=== PATIENT | female | born 1960 | race Two or more races ===

== ENCOUNTER 2016-11-03 20:50 | Inpatient (IN) | payer MEDICARE, MEDICAID ==
[~2016-11-03] VITALS: Ht 170.2 cm; Wt 92.1 kg
[2016-11-03 21:28] VITALS: BP 148/62
[2016-11-03 21:30] LABS: BASOPHILS % (AUTO) 1.5 % (0.0-2.0); EOSINOPHILS % (AUTO) 2.5 % (0.0-3.0); LYMPHOCYTES % (AUTO) 26.9 % (20.0-45.0); MEAN CORPUSCULAR HEMOGLOBIN 27.3 PG (27.0-31.0); MEAN CORPUSCULAR HGB CONC 31.8 G/DL (32.0-36.0); MEAN CORPUSCULAR VOLUME 86 FL (80-99); MEAN PLATELET VOLUME 8.5 FL (6.5-10.1); MONOCYTES % (AUTO) 4.8 % (1.0-10.0); NEUTROPHILS % (AUTO) 64.4 % (45.0-75.0); PLATELET COUNT 294 K/UL (150-450); RED BLOOD COUNT 5.06 M/UL (4.20-5.40); RED CELL DISTRIBUTION WIDTH 13.2 % (11.6-14.8)
[2016-11-03 21:49] LABS: TROPONIN I < 0.30 ng/mL (<=0.30)
[2016-11-03 21:53] LABS: CALCIUM 9.6 mg/dL (8.6-10.2); CREATININE 1.6 mg/dL (0.5-0.9); GLOMERULAR FILTRATION RATE 33.6 mL/min (>60); POTASSIUM 3.3 mEQ/L (3.4-4.9); TOTAL PROTEIN 7.6 g/dL (6.6-8.7)
[2016-11-03 22:03] LABS: CKMB 3.3 ng/mL (< 3.8)
--- NOTE | 2016-11-03 22:21 | Emergency Room Report ---
History of Present Illness General Chief Complaint: Chest Pain Source: Patient Present Illness HPI This patient states that she has had chest pain today primarily with walking and exertion. She denies shortness of breath. She denies nausea or vomiting. She denies cough or congestion. She denies fever or chills. She denies abdominal pain. She has no other complaints. Allergies: Coded Allergies: No Known Allergies (Unverified , 11/03/16) Patient History Past Medical History: see triage record, HTN, CVA/TIA Social History: Denies: alcohol use, drug use, smoking Reviewed Nursing Documentation: PMH: Agreed, PSxH: Agreed Nursing Documentation-PMH Past Medical History: No History, Except For Hx Hypertension: Yes Hx Neurological Problems: Yes - Lt weakness Hx Cerebrovascular Accident: Yes - 6 times Review of Systems All Other Systems: negative except mentioned in HPI Physical Exam Vital Signs Date Time Temp Pulse Resp B/P Pulse Ox O2 Delivery O2 Flow Rate FiO2 11/03/16 20:46 110 20 198/99 97 Room Air 11/03/16 21:28 98.0 Sp02 EP Interpretation: reviewed, normal General Appearance: no apparent distress, alert, GCS 15, non-toxic Head: normocephalic, atraumatic Eyes: bilateral eye PERRL, bilateral eye normal inspection ENT: hearing grossly normal, normal pharynx, no angioedema, normal voice Neck: full range of motion, supple/symm/no masses Respiratory: chest non-tender, lungs clear, normal breath sounds, speaking full sentences Cardiovascular #1: regular rate, rhythm, no edema Gastrointestinal: normal bowel sounds, non tender, soft, non-distended, no guarding, no rebound Rectal: deferred Musculoskeletal: back normal, gait/station normal, normal range of motion, non- tender Neurologic: alert, oriented x3, responsive, motor strength/tone normal, sensory intact, speech normal Psychiatric: judgement/insight normal, memory normal, mood/affect normal, no suicidal/homicidal ideation Skin: normal color, no rash, warm/dry, well hydrated Medical Decision Making Diagnostic Impression: Primary Impression: Chest pain ER Course This patient presents with chest pain. It is somewhat exertional. It has been going on all day today and she does have a negative troponin currently. However , this patient has a history of CVA and hypertension, so, she is high risk for acute coronary syndrome. Given how high risk this patient is, I will admit this patient for further cardiac evaluation to rule out unstable angina/acute coronary syndrome. Labs Test 11/03/16 21:02 White Blood Count 11.0 K/UL (4.8-10.8) Red Blood Count 5.06 M/UL (4.20-5.40) Hemoglobin 13.8 G/DL (12.0-16.0) Hematocrit 43.4 % (37.0-47.0) Mean Corpuscular Volume 86 FL (80-99) Mean Corpuscular Hemoglobin 27.3 PG (27.0-31.0) Mean Corpuscular Hemoglobin Concent 31.8 G/DL (32.0-36.0) Red Cell Distribution Width 13.2 % (11.6-14.8) Platelet Count 294 K/UL (150-450) Mean Platelet Volume 8.5 FL (6.5-10.1) Neutrophils (%) (Auto) 64.4 % (45.0-75.0) Lymphocytes (%) (Auto) 26.9 % (20.0-45.0) Monocytes (%) (Auto) 4.8 % (1.0-10.0) Eosinophils (%) (Auto) 2.5 % (0.0-3.0) Basophils (%) (Auto) 1.5 % (0.0-2.0) Sodium Level 141 mEQ/L (135-145) Potassium Level 3.3 mEQ/L (3.4-4.9) Chloride Level 99 mEQ/L (98-107) Carbon Dioxide Level 28 mEQ/L (20-30) Anion Gap 14 (5-15) Blood Urea Nitrogen 20 mg/dL (7-23) Creatinine 1.6 mg/dL (0.5-0.9) Estimat Glomerular Filtration Rate 33.6 mL/min (>60) Glucose Level 276 mg/dL (74-106) Calcium Level 9.6 mg/dL (8.6-10.2) Total Bilirubin 0.8 mg/dL (0.0-1.2) Aspartate Amino Transf (AST/SGOT) 15 U/L (5-40) Alanine Aminotransferase (ALT/SGPT) 13 U/L (3-33) Alkaline Phosphatase 93 U/L (35-104) Total Creatine Kinase 125 U/L (26-140) Creatine Kinase MB 3.3 ng/mL (< 3.8) Creatine Kinase MB Relative Index 2.6 Troponin I < 0.30 ng/mL (<=0.30) Total Protein 7.6 g/dL (6.6-8.7) Albumin 3.9 g/dL (3.5-5.2) Globulin 3.7 g/dL Albumin/Globulin Ratio 1.0 (1.0-2.7) EKG Diagnostic Results Rate: normal Rhythm: NSR ST Segments: other Other Impression NSST CHANGES LATERAL LEADS. Rhythm Strip Diag. Results EP Interpretation: yes Rate: 80'S Rhythm: NSR, no PVC's, no ectopy Chest X-Ray Diagnostic Results EP Interpretation: Yes Findings: no consolidation, no effusion, no pneumothorax, no acute cardiopulmonary disease Number of Views: 1 Last Vital Signs Date Time Temp Pulse Resp B/P Pulse Ox O2 Delivery O2 Flow Rate FiO2 11/03/16 21:31 68 19 Room Air 11/03/16 21:28 98.0 148/62 97 Disposition: ADMITTED INPATIENT Condition: Serious Referrals: NON PHYSICIAN (PCP) ALIE SNOW D.O. Nov 03, 2016 22:21
[2016-11-03] MEDS ORDERED: NORVASC10 MG ORAL (23:17)
[2016-11-03] MEDS ORDERED: ASPIRIN300 MG RECTAL (23:17)
[2016-11-03] MEDS ORDERED: PLAVIX75 MG ORAL (23:17)
[2016-11-03] MEDS ORDERED: LISINOPRIL5 MG ORAL (23:17)
[2016-11-03] MEDS ORDERED: TRAMADOL HCL100 M2 ORAL (23:35)
[2016-11-03] MEDS ORDERED: VITAMIN D250000 UNI1 ORAL (23:35)
[2016-11-03] MEDS ORDERED: PAROXETINE CR12.5 MG PO (23:35)
[2016-11-03] MEDS ORDERED: LASIX40 MG ORAL (23:35)
[2016-11-03] MEDS ORDERED: JANUVIA25 MG ORAL (23:35)
[2016-11-03 23:40] VITALS: BP 156/103
[2016-11-04] VITALS (7 sets, daily range): BP systolic 145–189; BP diastolic 74–99
[2016-11-04] MEDS ORDERED: Nitroglycerin Subl 0.4mg tab (Bottle Of 25) SL PRN (02:00)
[2016-11-04] MEDS ORDERED: traMADol 50mg tab ORAL PRN (02:45)
[2016-11-04] MEDS ORDERED: Norco 5mg/325mg tab ORAL PRN (02:45)
[2016-11-04] MEDS ORDERED: METOPROLOL TART25 MG ORAL (02:55)
[2016-11-04] MEDS ORDERED: NORVASC10 MG ORAL (02:59)
[2016-11-04] MEDS ORDERED: TRAMADOL HCL50 MG ORAL (02:59)
[2016-11-04 05:00] LABS: EOSINOPHILS % (AUTO) 4.3 % (0.0-3.0); MEAN CORPUSCULAR HEMOGLOBIN 27.8 PG (27.0-31.0); MEAN CORPUSCULAR HGB CONC 32.6 G/DL (32.0-36.0); MEAN CORPUSCULAR VOLUME 85 FL (80-99); MEAN PLATELET VOLUME 8.3 FL (6.5-10.1); MONOCYTES % (AUTO) 6.2 % (1.0-10.0); NEUTROPHILS % (AUTO) 56.5 % (45.0-75.0); PLATELET COUNT 221 K/UL (150-450); RED BLOOD COUNT 4.21 M/UL (4.20-5.40); WHITE BLOOD COUNT 9.6 K/UL (4.8-10.8)
[2016-11-04 05:19] LABS: CALCIUM 8.8 mg/dL (8.6-10.2); CREATININE 1.4 mg/dL (0.5-0.9); GLOMERULAR FILTRATION RATE 39.2 mL/min (>60); MAGNESIUM 1.5 mg/dL (1.7-2.5); POTASSIUM 3.7 mEQ/L (3.4-4.9); TOTAL PROTEIN 6.1 g/dL (6.6-8.7)
[2016-11-04 06:05] LABS: TROPONIN I < 0.30 ng/mL (<=0.30)
[2016-11-04] MEDS: Heparin 5000 units/ml inj SUBQ SCH ×3 (06:26→21:09)
[2016-11-04] MEDS: PARoxetine 10mg tab ORAL SCH (08:39)
[2016-11-04] MEDS: Lisinopril 2.5mg tab ORAL SCH (08:40)
[2016-11-04] MEDS: NovoLOG Insulin Flexpen SUBQ SCH ×4 (09:00→21:09)
--- NOTE | 2016-11-04 10:57 | Diagnostic Imaging Report ---
Indication: Chest Pain Comparison: None A single view chest radiograph was obtained. Findings: Cardiomediastinal appearance is within normal limits for age. Pulmonary vascularity is appropriate. The diaphragmatic contour is smooth and costophrenic angles are sharp. No pleural effusions are identified. The bones are unremarkable. Impression: No acute findings
--- NOTE | 2016-11-04 12:31 | Cardiac Electrophysiology PN ---
Subjective Subjective [id number]. Chest pain and High DDimer. Bifascicular block. Inferolat ischemia. if Chest CT no PE, Do stress test on Sunday. Objective Last 24 Hour Vital Signs Date Time Temp Pulse Resp B/P Pulse Ox O2 Delivery O2 Flow Rate FiO2 11/04/16 12:00 82 11/04/16 11:23 91 145/96 11/04/16 08:40 162/92 11/04/16 08:00 97.9 69 20 162/92 94 Room Air 11/04/16 08:00 68 11/04/16 04:00 98.0 72 18 150/81 98 Room Air 11/04/16 04:00 87 11/04/16 03:28 80 150/100 11/04/16 00:00 98.6 72 18 160/90 98 Room Air 11/04/16 00:00 86 11/03/16 23:40 97.7 71 20 156/103 97 Room Air 11/03/16 23:35 98.0 78 19 145/65 100 Room Air 11/03/16 21:31 68 19 Room Air 11/03/16 21:28 98.0 71 20 148/62 97 Room Air 11/03/16 20:46 110 20 198/99 97 Room Air Intake and Output 11/03/16 11/04/16 19:00 07:00 Intake Total 360 ml Output Total 320 ml Balance 40 ml Intake Oral 60 ml Other 300 ml Output Urine Total 320 ml Laboratory Tests Test 11/03/16 21:02 11/03/16 23:12 11/04/16 03:00 White Blood Count 11.0 K/UL (4.8-10.8) H 9.6 K/UL (4.8-10.8) Red Blood Count 5.06 M/UL (4.20-5.40) 4.21 M/UL (4.20-5.40) Hemoglobin 13.8 G/DL (12.0-16.0) 11.7 G/DL (12.0-16.0) L Hematocrit 43.4 % (37.0-47.0) 35.9 % (37.0-47.0) L Mean Corpuscular Volume 86 FL (80-99) 85 FL (80-99) Mean Corpuscular Hemoglobin 27.3 PG (27.0-31.0) 27.8 PG (27.0-31.0) Mean Corpuscular Hemoglobin Concent 31.8 G/DL (32.0-36.0) L 32.6 G/DL (32.0-36.0) Red Cell Distribution Width 13.2 % (11.6-14.8) 13.0 % (11.6-14.8) Platelet Count 294 K/UL (150-450) 221 K/UL (150-450) Mean Platelet Volume 8.5 FL (6.5-10.1) 8.3 FL (6.5-10.1) Neutrophils (%) (Auto) 64.4 % (45.0-75.0) 56.5 % (45.0-75.0) Lymphocytes (%) (Auto) 26.9 % (20.0-45.0) 32.0 % (20.0-45.0) Monocytes (%) (Auto) 4.8 % (1.0-10.0) 6.2 % (1.0-10.0) Eosinophils (%) (Auto) 2.5 % (0.0-3.0) 4.3 % (0.0-3.0) H Basophils (%) (Auto) 1.5 % (0.0-2.0) 1.0 % (0.0-2.0) Sodium Level 141 mEQ/L (135-145) 142 mEQ/L (135-145) Potassium Level 3.3 mEQ/L (3.4-4.9) L 3.7 mEQ/L (3.4-4.9) Chloride Level 99 mEQ/L (98-107) 103 mEQ/L (98-107) Carbon Dioxide Level 28 mEQ/L (20-30) 25 mEQ/L (20-30) Anion Gap 14 (5-15) 14 (5-15) Blood Urea Nitrogen 20 mg/dL (7-23) 21 mg/dL (7-23) Creatinine 1.6 mg/dL (0.5-0.9) H 1.4 mg/dL (0.5-0.9) H Estimat Glomerular Filtration Rate 33.6 mL/min (>60) 39.2 mL/min (>60) Glucose Level 276 mg/dL (74-106) H 283 mg/dL (74-106) H Calcium Level 9.6 mg/dL (8.6-10.2) 8.8 mg/dL (8.6-10.2) Total Bilirubin 0.8 mg/dL (0.0-1.2) 0.5 mg/dL (0.0-1.2) Aspartate Amino Transf (AST/SGOT) 15 U/L (5-40) 14 U/L (5-40) Alanine Aminotransferase (ALT/SGPT) 13 U/L (3-33) 10 U/L (3-33) Alkaline Phosphatase 93 U/L (35-104) 83 U/L (35-104) Total Creatine Kinase 125 U/L (26-140) Creatine Kinase MB 3.3 ng/mL (< 3.8) Creatine Kinase MB Relative Index 2.6 Troponin I < 0.30 ng/mL (<=0.30) < 0.30 ng/mL (<=0.30) Total Protein 7.6 g/dL (6.6-8.7) 6.1 g/dL (6.6-8.7) L Albumin 3.9 g/dL (3.5-5.2) 3.1 g/dL (3.5-5.2) L Globulin 3.7 g/dL 3.0 g/dL Albumin/Globulin Ratio 1.0 (1.0-2.7) 1.0 (1.0-2.7) Urine Opiates Screen Negative (NEGATIVE) Urine Barbiturates Screen Negative (NEGATIVE) Phencyclidine (PCP) Screen Negative (NEGATIVE) Urine Amphetamines Screen Negative (NEGATIVE) Urine Benzodiazepines Screen Negative (NEGATIVE) Urine Cocaine Screen Negative (NEGATIVE) Urine Marijuana (THC) Screen Negative (NEGATIVE) D-Dimer 1351 ng/mL (<500) H Phosphorus Level 3.1 mg/dL (2.5-4.8) Magnesium Level 1.5 mg/dL (1.7-2.5) CHRISTIANO GILBERT Nov 04, 2016 12:31
--- NOTE | 2016-11-04 14:19 | History & Physical ---
History and Physical History & Physicial Dictated for Int Med-Dr Chiu no. [id number]. DUYEN OWUSU Nov 04, 2016 14:19
[2016-11-04] MEDS: 1/2NS w/KCl 20mEq 1000ml 1,000 ML IV SCH (15:30)
[2016-11-04] MEDS: Acetylcysteine 20% Soln 4ml ORAL SCH (16:43)
--- NOTE | 2016-11-04 21:47 | History and Physical Report ---
DATE OF ADMISSION: 11/03/2016 CHIEF COMPLAINT: The patient is a 56-year-old female, presents with chief complaint of chest pain. HISTORY OF PRESENT ILLNESS: Began one day prior to admission. The patient began to experience chest pain. Chest pain was exacerbated with walking. Chest pain was substernal. Chest pain did not radiate to the arm or to the jaw. The patient presented to [place] emergency room. The patient was admitted for chest pain to rule out acute coronary syndrome. REVIEW OF SYSTEMS: Constitutional: The patient denies weight loss or weight gain. The patient denies fevers or chills. HEENT: The patient denies ear or throat pain. Cardiovascular: The patient complains of chest pain as above. The patient denies palpitations. Chest: The patient denies wheezes or shortness of breath. Abdominal: The patient denies nausea, vomiting, diarrhea, or constipation. Genitourinary: The patient denies dysuria or increased frequency of urination. Neuromuscular: The patient has a left-sided weakness. The patient denies seizures or generalized weakness. PAST MEDICAL HISTORY: Significant for: 1. Hypertension. 2. Diabetes type 2. 3. Cerebrovascular disease, status post cerebrovascular accident x6. 4. Left hemiparesis. PAST SURGICAL HISTORY: The patient denies. CURRENT MEDICATIONS: 1. Amlodipine 10 mg one tablet p.o. daily. 2. Aspirin 325 mg one tablet p.o. daily. 3. Plavix 75 mg one tablet p.o. daily. 4. Vitamin D 50,000 units once weekly. 5. Lasix 40 mg one tablet p.o. daily. 6. Lisinopril 5 mg one tablet p.o. daily. 7. Metoprolol 25 mg one tablet p.o. twice daily. 8. Paxil 10 mg p.o. daily. 9. Januvia 25 mg one tablet p.o. daily. 10. Tramadol 50 mg one tablet p.o. q.8 hours as needed. ALLERGIES: No known drug allergies. SOCIAL HISTORY: The patient is single and is unemployed. The patient denies tobacco or alcohol use. PHYSICAL EXAMINATION: VITAL SIGNS: Temperature 98.0 degrees, respirations 18, pulse 72 to 87, and blood pressure 150/81. GENERAL: The patient is a well-developed and well-nourished obese female, in no apparent distress. HEENT: Eyes, pupils are equal and responsive to light and accommodation. Extraocular movements are intact. NECK: Supple without lymphadenopathy. CHEST: Lungs are clear to auscultation bilaterally without wheezes or rales. CARDIOVASCULAR: Regular rhythm and rate. S1 and S2 are normal without murmurs, rubs, or gallops. ABDOMEN: Soft, nontender, and nondistended. Positive bowel sounds. No evidence of hepatosplenomegaly. Currently, no rebound or guarding noted. EXTREMITIES: Negative for clubbing, cyanosis, or edema. RECTAL: Refused. GENITOURINARY: Refused. NEUROLOGIC: The patient does have 3/5 motor strength on the left when compared to the right. Deep tendon reflexes are 2+ plantar. Cranial nerves II through XII are grossly intact without focal deficits. LABORATORY STUDIES: WBC 11.3, hemoglobin 13.8, hematocrit 43.4, and platelets 294,000. Sodium 141, potassium 3.3, chloride 99, CO2 28, BUN 20, creatinine 1.6, and glucose 276. Troponin less than 0.3. D-dimer elevated at 1351. ASSESSMENT: This is a 56-year-old female with: 1. Chest pain. 2. Elevated D-dimer. 3. Diabetes type 2. 4. Hypertension. 5. Cerebrovascular disease. 6. Left hemiparesis. TREATMENT: 1. Chest pain. A Cardiology consultation has been obtained with Dr. Ranulfo Mann. The patient is scheduled for a Cardiolite stress test on 11/06/2016. 2. Elevated D-dimer is concerning in the patient with chest pain. This may be secondary to pulmonary embolism. CT angiogram of the chest is pending. According to Radiology, the CT angiogram cannot be performed at this time. A ventilation/perfusion scan has been ordered instead. 3. Diabetes type 2. The patient has been placed on NovoLog sliding scale. 4. Hypertension. Continue amlodipine as above. Continue lisinopril 5 mg one tablet p.o. daily. 5. Cerebrovascular disease, status post cerebrovascular accident. Continue Plavix as above. 6. Left hemiparesis. Corky Stewart M.D. DR: RO JOB#: [id number] CC:
--- NOTE | 2016-11-04 22:58 | Consultation ---
DATE OF CONSULTATION: 11/04/2016 CARDIOLOGY CONSULTATION CONSULTING PHYSICIAN: Ranulfo Mann M.D. REFERRING PHYSICIAN: Len Chiu M.D. REASON FOR CONSULTATION: Chest pain. HISTORY OF PRESENT ILLNESS: The patient is a very pleasant 56-year-old lady, who presents for hypertension and insulin-dependent diabetes with history of multiple CVAs in the past with left hemiparesis, who presented to the emergency room complaining of chest pain while she was walking when she is exerting. The patient did not have any shortness of breath or syncope or presyncopal symptoms. The patient did not have nausea, vomiting, or diaphoresis. The patient's blood pressure in the emergency room was 198/99 and pulse was 110. The first set of cardiac enzymes were negative. Her EKG showed right bundle-branch block and T-wave abnormalities suggestive of inferolateral ischemia. Cardiology consultation was obtained for further evaluation and management. REVIEW OF SYSTEMS: Review of system was performed and was negative other than what was mentioned in the history of present illness. PAST MEDICAL HISTORY: 1. Hypertension Hypertension. 2. Diabetes. 3. History of recurrent CVA and TIA. SOCIAL HISTORY: She lives at home. Does not smoke or drink alcohol. FAMILY HISTORY: Noncontributory. PHYSICAL EXAMINATION: VITAL SIGNS: Showed blood pressure of 145/96, pulse 91, respirations 18, and she is afebrile. HEAD AND NECK: Showed no JVD or carotid bruits. LUNGS: Clear. CARDIOVASCULAR: Shows regular S1 and S2 with no gallop or murmur. ABDOMEN: Soft and nontender. EXTREMITIES: No pitting edema. She has left hemiparesis. LABORATORY DATA: White count 9.2, hemoglobin , hematocrit 36, and platelet count of 221,000. Sodium 142, potassium 3.7, BUN 21, creatinine 1.4, and glucose of 283. Troponin is negative x2. Her urine toxicology is negative. D-dimer is 1351. ASSESSMENT AND PLAN: 1. Chest pain. A 56-year-old lady with multiple risk factors for coronary artery disease. We will completely rule out myocardial infarction protocol. The patient already was ruled out for myocardial infarction, but negative troponins. EKG, however, suspicious for inferolateral ischemia. However, in view of elevated D-dimer, I am going to schedule the patient for chest CT first to rule out the PE and if that is negative then proceed with nuclear stress test for further evaluation. At that point in time, we will get a 2D echocardiogram. It is of note that the patient's urine toxicology screen was also negative. 2. Hypertension on Norvasc 10 mg daily. Increase lisinopril to 5 mg b.i.d. 40 mg by mouth daily. 3. History of recurrent cerebrovascular accident. The patient is on Plavix, that will be continued. 4. History of insulin-dependent diabetes on insulin. Thank you very much, Dr. Chiu, for allowing me to participate in the care of this patient. Please do not hesitate to contact me if you have any questions regarding my evaluation. Ranulfo Mann M.D. DR: SALAZAR JOB#: [id number] CC:
[2016-11-05 03:53] VITALS: BP 157/89
[2016-11-05 04:34] LABS: BASOPHILS % (AUTO) 1.2 % (0.0-2.0); EOSINOPHILS % (AUTO) 5.3 % (0.0-3.0); LYMPHOCYTES % (AUTO) 29.8 % (20.0-45.0); MEAN CORPUSCULAR HEMOGLOBIN 27.5 PG (27.0-31.0); MEAN CORPUSCULAR HGB CONC 32.1 G/DL (32.0-36.0); MEAN CORPUSCULAR VOLUME 86 FL (80-99); MEAN PLATELET VOLUME 8.8 FL (6.5-10.1); MONOCYTES % (AUTO) 5.5 % (1.0-10.0); NEUTROPHILS % (AUTO) 58.2 % (45.0-75.0); PLATELET COUNT 235 K/UL (150-450); RED BLOOD COUNT 4.27 M/UL (4.20-5.40); RED CELL DISTRIBUTION WIDTH 12.7 % (11.6-14.8); WHITE BLOOD COUNT 9.7 K/UL (4.8-10.8)
[2016-11-05 05:11] LABS: TROPONIN I < 0.30 ng/mL (<=0.30)
[2016-11-05 05:26] LABS: CREATININE 1.5 mg/dL (0.5-0.9); GLOMERULAR FILTRATION RATE 36.2 mL/min (>60); POTASSIUM 3.8 mEQ/L (3.4-4.9)
[2016-11-05 05:38] LABS: CHOLESTEROL/HDL RATIO 2.3 (3.3-4.4)
[2016-11-05 05:48] LABS: THYROID STIMULATING HORMONE 0.222 uIU/mL (0.300-4.500)
[2016-11-05] MEDS: Heparin 5000 units/ml inj SUBQ SCH ×2 (06:17→14:16)
[2016-11-05] MEDS: NovoLOG Insulin Flexpen SUBQ SCH ×3 (06:18→17:31)
[2016-11-05 08:00] VITALS: BP_SYST 151; BP_SYST 159; BP_DIAS 80; BP_DIAS 94
[2016-11-05] MEDS: PARoxetine 10mg tab ORAL SCH (08:54)
[2016-11-05] MEDS: Lisinopril 2.5mg tab ORAL SCH (08:54)
[2016-11-05] MEDS: Acetylcysteine 20% Soln 4ml ORAL SCH ×2 (08:55→17:32)
[2016-11-05] MEDS: 1/2NS w/KCl 20mEq 1000ml 1,000 ML IV SCH ×2 (11:30→18:23)
[2016-11-05 12:00] VITALS: BP 155/94
--- NOTE | 2016-11-05 12:52 | Cardiac Electrophysiology PN ---
Assessment/Plan Assessment/Plan 1. Chest pain. Ruled out for myocardial infarction EKG, however, suspicious for inferolateral ischemia. However, in view of elevated D-dimer, ordered CT angio but was not done for cr 1.5. VQ Scan pending. If negative then proceed with nuclear stress test for further evaluation. 2. Hypertension on Norvasc 10 mg daily and Lasix 40 mg by mouth daily. 3. History of recurrent cerebrovascular accident. On Plavix. 4. History of insulin-dependent diabetes on insulin. 5. Mild renal failure creatinine 1.5 DW RN Subjective Subjective Alert in NAD. No Chest pain today. Bifascicular block. Chest CT was not done for mild creatinine elevation. Objective Last 24 Hour Vital Signs Date Time Temp Pulse Resp B/P Pulse Ox O2 Delivery O2 Flow Rate FiO2 11/05/16 12:18 71 11/05/16 12:00 98.4 85 20 155/94 98 Room Air 11/05/16 08:54 86 159/80 11/05/16 08:54 159/80 11/05/16 08:34 86 11/05/16 08:00 97.7 71 20 151/94 95 Room Air 11/05/16 04:00 74 11/05/16 03:53 98.1 77 18 157/89 97 Room Air 11/05/16 00:00 70 11/04/16 23:34 98.2 86 19 159/80 96 Room Air 11/04/16 20:00 79 11/04/16 19:00 97.7 80 18 158/92 98 Room Air 11/04/16 16:00 98.2 71 18 148/74 96 Room Air 11/04/16 16:00 71 11/04/16 16:00 Intake and Output 11/04/16 11/05/16 18:59 06:59 Intake Total 550 ml 1260 ml Output Total 600 ml Balance 550 ml 660 ml Intake Oral 550 ml 660 ml IV Total 600 ml Output Urine Total 600 ml # Voids 1 5 Laboratory Tests Test 11/05/16 03:40 White Blood Count 9.7 K/UL (4.8-10.8) Red Blood Count 4.27 M/UL (4.20-5.40) Hemoglobin 11.7 G/DL (12.0-16.0) L Hematocrit 36.6 % (37.0-47.0) L Mean Corpuscular Volume 86 FL (80-99) Mean Corpuscular Hemoglobin 27.5 PG (27.0-31.0) Mean Corpuscular Hemoglobin Concent 32.1 G/DL (32.0-36.0) Red Cell Distribution Width 12.7 % (11.6-14.8) Platelet Count 235 K/UL (150-450) Mean Platelet Volume 8.8 FL (6.5-10.1) Neutrophils (%) (Auto) 58.2 % (45.0-75.0) Lymphocytes (%) (Auto) 29.8 % (20.0-45.0) Monocytes (%) (Auto) 5.5 % (1.0-10.0) Eosinophils (%) (Auto) 5.3 % (0.0-3.0) H Basophils (%) (Auto) 1.2 % (0.0-2.0) Sodium Level 141 mEQ/L (135-145) Potassium Level 3.8 mEQ/L (3.4-4.9) Chloride Level 102 mEQ/L (98-107) Carbon Dioxide Level 26 mEQ/L (20-30) Anion Gap 13 (5-15) Blood Urea Nitrogen 22 mg/dL (7-23) Creatinine 1.5 mg/dL (0.5-0.9) H Estimat Glomerular Filtration Rate 36.2 mL/min (>60) Glucose Level 133 mg/dL (74-106) #H Calcium Level 9.0 mg/dL (8.6-10.2) Troponin I < 0.30 ng/mL (<=0.30) Triglycerides Level 65 mg/dL (< 150) Cholesterol Level 147 mg/dL (< 200) LDL Cholesterol 71 mg/dL (60-99) HDL Cholesterol 63 mg/dL (> 60) H Cholesterol/HDL Ratio 2.3 (3.3-4.4) L Thyroid Stimulating Hormone (TSH) 0.222 uIU/mL (0.300-4.500) Objective HEAD AND NECK: Showed no JVD or carotid bruits. LUNGS: Clear. CARDIOVASCULAR: Shows regular S1 and S2 with no gallop or murmur. ABDOMEN: Soft and nontender. EXTREMITIES: No pitting edema. She has left hemiparesis. CHRISTIANO ELENA Nov 05, 2016 12:52
--- NOTE | 2016-11-05 14:16 | Cardiology Report ---
APPROVED REPORT EXAM: Two-dimensional and M-mode echocardiogram with Doppler and color Doppler. M-Mode DIMENSIONS IVSd1.5 (0.7-1.1cm)Left Atrium (MM)3.9 (1.6-4.0cm) LVDd4.2 (3.5-5.6cm)Aortic Root3.7 (2.0-3.7cm) PWd1.5 (0.7-1.1cm)Aortic Cusp Exc.2.0 (1.5-2.0cm) LVDs2.1 (2.5-4.0cm) PWs2.5 cm Technically difficult study due to poor acoustic windows and pain. Hyperdynamic left ventricular function. Moderate concentric left ventricular hypertrophy. Heavy MAC Mild left atrial enlargment seen in 2D. All right cardiac chamber sizes are within normal limits. Focal aortic valve sclerosis with adequate cusp excursion Mildy thickened mitral valve leaflets with normal excursion. Pulmonic valve well visualized. Normal tricuspid valve structure. IVC at 1.7cm with physiologic collapse. A color flow and spectral Doppler study was performed and revealed: No aortic regurgitation. Trace mitral regurgitation. Mitral inflow velocities indicates reduced left ventricular relaxation diastolic dysfunction. Grade one. Trace tricuspid regurgitation. Tricuspid systolic velocities suggests peak right ventricular systolic pressure of 7 mmHg. No pulmonic regurgitation present.
[2016-11-05 16:00] VITALS: BP 156/86
--- NOTE | 2016-11-05 17:46 | Internal Med Progress Note ---
Subjective Date of Service: Nov 05, 2016 Physician Name Corky Owusu Attending Physician Len Chiu MD Current Medications Medications (Trade) Dose Ordered Sig/Pranav Route PRN Reason Start Time Stop Time Status Last Admin Dose Admin Acetaminophen (Tylenol) 650 mg Q6H PRN ORAL Mild Pain (Pain Scale 1-3) 11/04/16 02:00 12/04/16 01:59 Acetaminophen/ Hydrocodone Bitart ([place] 5/325) 1 tab Q6H PRN ORAL For Pain 11/04/16 02:45 11/11/16 02:44 Acetylcysteine 600 mg 600 mg TWICE A DAY ORAL 11/04/16 18:00 12/04/16 17:59 11/05/16 17:32 Amlodipine Besylate (Norvasc) 10 mg DAILY ORAL 11/04/16 11:00 12/04/16 10:59 11/05/16 08:54 Clopidogrel Bisulfate (Plavix) 75 mg DAILY ORAL 11/04/16 09:00 12/04/16 08:59 11/05/16 08:54 Dextrose (Dextrose 50%) STAT PRN IV Hypoglycemia 11/04/16 02:00 12/04/16 01:59 Furosemide (Lasix) 40 mg DAILY IV 11/04/16 09:00 12/04/16 08:59 11/05/16 08:55 Heparin Sodium (Porcine) (Heparin 5000 units/ml) 5,000 units EVERY 8 HOURS SUBQ 11/04/16 06:00 12/04/16 05:59 11/05/16 14:16 Insulin Aspart (NovoLOG) BEFORE MEALS AND HS SUBQ 11/04/16 06:30 12/04/16 06:29 11/05/16 17:31 Nitroglycerin (Ntg) 0.4 mg Q5M PRN SL Prn Chest Pain 11/04/16 02:00 12/04/16 01:59 Pantoprazole (Protonix) 40 mg DAILY ORAL 11/04/16 09:00 12/04/16 08:59 11/05/16 08:54 Paroxetine HCl (Paxil) 10 mg DAILY ORAL 11/04/16 09:00 12/04/16 08:59 11/05/16 08:54 Sodium (0.45%NS w/KCl 20mEq 1000ml) 1,000 ml @ 50 mls/hr Q20H IV 11/04/16 15:30 12/04/16 15:29 11/04/16 15:30 Tramadol HCl (Ultram) 50 mg Q8H PRN ORAL For Pain 11/04/16 02:45 11/11/16 02:44 11/04/16 21:19 Allergies: Coded Allergies: No Known Allergies (Unverified , 11/03/16) ROS Limited/Unobtainable: No Constitutional: Reports: no symptoms HEENT: Reports: no symptoms Cardiovascular: Reports: chest pain Respiratory: Reports: no symptoms Gastrointestinal/Abdominal: Reports: no symptoms Genitourinary: Reports: no symptoms Neurologic/Psychiatric: Reports: no symptoms Subjective 56 YO F admitted with chest pain; now elevated d-dimer. Cover for Int Med-Dr Chiu. Await CT angio chest. Objective Last Vital Signs Date Time Temp Pulse Resp B/P Pulse Ox O2 Delivery O2 Flow Rate FiO2 11/05/16 16:00 97.9 81 14 156/86 97 Room Air General Appearance: WD/WN, no apparent distress, alert EENT: PERRL/EOMI, normal ENT inspection Neck: non-tender, normal alignment, supple, normal inspection Cardiovascular: normal peripheral pulses, normal rate, regular rhythm, no gallop/murmur, no JVD Respiratory/Chest: chest wall non-tender, lungs clear, normal breath sounds, no respiratory distress, no accessory muscle use Abdomen: normal bowel sounds, non tender, soft, no organomegaly, no mass Extremities: normal range of motion Neurologic: verification engineer II-XII grossly normal, no motor/sensory deficits Skin: normal pigmentation, warm/dry Laboratory Tests Test 11/05/16 03:40 White Blood Count 9.7 K/UL (4.8-10.8) Red Blood Count 4.27 M/UL (4.20-5.40) Hemoglobin 11.7 G/DL (12.0-16.0) L Hematocrit 36.6 % (37.0-47.0) L Mean Corpuscular Volume 86 FL (80-99) Mean Corpuscular Hemoglobin 27.5 PG (27.0-31.0) Mean Corpuscular Hemoglobin Concent 32.1 G/DL (32.0-36.0) Red Cell Distribution Width 12.7 % (11.6-14.8) Platelet Count 235 K/UL (150-450) Mean Platelet Volume 8.8 FL (6.5-10.1) Neutrophils (%) (Auto) 58.2 % (45.0-75.0) Lymphocytes (%) (Auto) 29.8 % (20.0-45.0) Monocytes (%) (Auto) 5.5 % (1.0-10.0) Eosinophils (%) (Auto) 5.3 % (0.0-3.0) H Basophils (%) (Auto) 1.2 % (0.0-2.0) Sodium Level 141 mEQ/L (135-145) Potassium Level 3.8 mEQ/L (3.4-4.9) Chloride Level 102 mEQ/L (98-107) Carbon Dioxide Level 26 mEQ/L (20-30) Anion Gap 13 (5-15) Blood Urea Nitrogen 22 mg/dL (7-23) Creatinine 1.5 mg/dL (0.5-0.9) H Estimat Glomerular Filtration Rate 36.2 mL/min (>60) Glucose Level 133 mg/dL (74-106) #H Calcium Level 9.0 mg/dL (8.6-10.2) Troponin I < 0.30 ng/mL (<=0.30) Triglycerides Level 65 mg/dL (< 150) Cholesterol Level 147 mg/dL (< 200) LDL Cholesterol 71 mg/dL (60-99) HDL Cholesterol 63 mg/dL (> 60) H Cholesterol/HDL Ratio 2.3 (3.3-4.4) L Thyroid Stimulating Hormone (TSH) 0.222 uIU/mL (0.300-4.500) Intake and Output 11/04/16 11/05/16 19:00 07:00 Intake Total 600 ml 1260 ml Output Total 600 ml Balance 600 ml 660 ml Intake Oral 550 ml 660 ml IV Total 50 ml 600 ml Output Urine Total 600 ml # Voids 1 5 Assessment/Plan Problem List: (1) Elevated d-dimer Assessment & Plan: Await CT angio chest. (2) Diabetes mellitus Assessment & Plan: Cont novolog sliding scale. (3) HTN (hypertension) Assessment & Plan: Cont amlodipine (4) Cerebral vascular disease Assessment & Plan: Cont plavix (5) Left hemiparesis (6) Chest pain Assessment & Plan: See cardiology note. Await CT angio chest to rule out pulmonary embolism; if neg - proceed with adenosine cardiac stress test. Status: not improved CORKY OWUSU Nov 05, 2016 17:46
[2016-11-05 20:00] VITALS: BP 153/93
[2016-11-05] MEDS ORDERED: 1/2NS w/KCl 20mEq 1000ml 1,000 ML IV SCH (21:15)
[2016-11-05] MEDS ORDERED: Nitroglycerin Subl 0.4mg tab (Bottle Of 25) SL PRN (21:20)
[2016-11-05] MEDS ORDERED: Heparin 5000 units/ml inj SUBQ SCH (22:00)
[2016-11-06] MEDS ORDERED: Norco 5mg/325mg tab ORAL PRN (02:45)
[2016-11-06] MEDS ORDERED: traMADol 50mg tab ORAL PRN (02:45)
[2016-11-06] MEDS ORDERED: NovoLOG Insulin Flexpen SUBQ SCH (06:30)
[2016-11-06] MEDS ORDERED: Acetylcysteine 20% Soln 4ml ORAL SCH (09:00)
[2016-11-06] MEDS ORDERED: PARoxetine 10mg tab ORAL SCH (09:00)
--- NOTE | 2016-11-06 14:50 | Discharge Summary ---
Discharge Summary Hospital Course Date of Admission Nov 03, 2016 at 22:26 Date of Discharge Nov 05, 2016 at 22:54 Admitting Diagnosis CP, r/o ACS Reason for Hospitalization: chest pain in adult witl multipel risk factors for ACS HPI Pearl Amos, 56 year old female , admitted on Nov 03, 2016 at 22:26 for Chest Pain, R/O Acute Coronary Syndrome Consultations cardio dr [place] Hospital Course 56 y/old female admitted for chest pain patient with multiple risk factors for ACS/CAD including HTN, DM, recurrent CVA serial troponin x 3 negative cardio follows cardio ruled out for ACS, however ECG with suspicion for inferolateral ischemia stress test ordered for 11/06/16 during workup found elevated D dimer CTA unable to do due to elevated creatinine VQ scan pending per cardio if VQ negative, proceed with stress test no tachycardia, no tachypnea on RA sat stable SR on tele BP management with CCB, diuretic, stable lipid panel stable, on Plavix BS management with SS of insulin noted low TSH , need further labs ( thyroid panel) patient decided to leave AMA patient A/A/O x 4 ( see nurse note on it) despite explaining to the patietn risks and consequences of leaving AMA, she insisted to leave,. 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 I was not involved in the patient management Emelyn Lui NP ([place]anchte[place]) Nov 06, 2016 14:50
--- NOTE | 2016-11-07 18:03 | Cardiology Report ---
APPROVED REPORT EKG Measurement Heart [id number] Normal sinus rhythm Possible Left atrial enlargement Left axis deviation Right bundle branch block Left ventricular hypertrophy T wave abnormality, consider inferolateral ischemia Abnormal ECG
--- NOTE | 2016-11-07 18:04 | Cardiology Report ---
APPROVED REPORT EKG Measurement Heart [id number] Sinus tachycardia Possible Left atrial enlargement Right bundle branch block Left ventricular hypertrophy T wave abnormality, consider lateral ischemia Abnormal ECG
== END 2016-11-05 22:54 | disposition left against medical advice (07) | DRG 313 ==
LOC: EDBD 20:50 → EMR 21:44 → 2W 22:26 → EDBEDREQ 22:56 → 2E 11-05 20:30
DX: R07.9 Chest pain, unspecified (principal); I69.354 Hemiplegia and hemiparesis following cerebral infarction affecting left non-dominant side; I10 Essential (primary) hypertension; I45.2 Bifascicular block; E11.9 Type 2 diabetes mellitus without complications; Z79.4 Long term (current) use of insulin
CPT/HCPCS: 36415; 71010; 80048; 80053; 80061; 80300; 82550; 82553; 82962; 83735; 84100; 84443; 84484; 85025; 85379; 93005; 93306; J1815; J8499